=== PATIENT | female | born 1990 | race Asian ===

== ENCOUNTER 2018-04-09 20:18 | Emergency (ER) | END 2018-04-09 20:59 | disposition home or self-care (01) ==

== ENCOUNTER 2018-04-26 11:59 | Emergency (ER) | payer BC ==
[~2018-04-26] VITALS: Wt 50.3 kg
--- NOTE | 2018-04-26 14:32 | ERD ---
ER Documentation Chief Complaint Chief Complaint ABD PAIN X6 DAYS, NO N/V HPI 28-year-old female presents emergency department complains of intermittent episodes of moderate to severe epigastric abdominal pain that comes and goes for the past 6 days. Patient denies any nausea vomiting. Patient denies pain right now but she presents wondering what the pain was from. Patient denies fever, decreased appetite. States she is eating well. Denies any and medications for this ROS All systems reviewed and are negative except as per history of present illness. Medications Home Meds Active Scripts Omeprazole* (Omeprazole*) 20 Mg Capsule.dr, 20 MG PO DAILY, #14 Prov:AYANA ROUSSEAU PA-C 04/26/18 Famotidine* (Pepcid*) 20 Mg Tablet, 20 MG PO QHS for 4 Days, TAB Prov:AYANA ROUSSEAU PA-C 04/26/18 Allergies Allergies: Coded Allergies: No Known Allergy (Unverified , 04/26/18) PMhx/Soc Medical and Surgical Hx: pt denies Medical Hx, pt denies Surgical Hx Hx Alcohol Use: No Hx Substance Use: No Hx Tobacco Use: No Physical Exam Vitals Vital Signs Date Temp Pulse Resp B/P (MAP) Pulse Ox O2 O2 Flow FiO2 Time Delivery Rate 04/26/18 98.2 78 16 132/71 100 Room Air 15:01 (91) 04/26/18 98.4 86 17 141/76 100 12:01 (97) Physical Exam Const: No acute distress Head: Atraumatic Eyes: Normal Conjunctiva ENT: Normal External Ears, Nose and Mouth. Neck: Full range of motion. No meningismus. Resp: Clear to auscultation bilaterally Cardio: Regular rate and rhythm, no murmurs Abd: Soft, non tender, non distended. Normal bowel sounds Skin: No petechiae or rashes Back: No midline or flank tenderness Ext: No cyanosis, or edema Neur: Awake and alert Psych: Normal Mood and Affect Result Diagram: 04/26/18 1315 04/26/18 1315 Results 24 hrs Laboratory Tests Test 04/26/18 13:01 04/26/18 13:15 POC Beta HCG, Qualitative NEGATIVE White Blood Count 7.4 10^3/ul Red Blood Count 5.22 10^6/ul Hemoglobin 13.9 g/dl Hematocrit 43.7 % Mean Corpuscular Volume 83.7 fl Mean Corpuscular Hemoglobin 26.6 pg Mean Corpuscular Hemoglobin Concent 31.8 g/dl Red Cell Distribution Width 13.8 % Platelet Count 245 10^3/UL Mean Platelet Volume 10.4 fl Immature Granulocytes % 0.300 % Neutrophils % 61.2 % Lymphocytes % 29.0 % Monocytes % 7.2 % Eosinophils % 1.9 % Basophils % 0.4 % Nucleated Red Blood Cells % 0.0 /100WBC Immature Granulocytes # 0.020 10^3/ul Neutrophils # 4.5 10^3/ul Lymphocytes # 2.1 10^3/ul Monocytes # 0.5 10^3/ul Eosinophils # 0.1 10^3/ul Basophils # 0.0 10^3/ul Nucleated Red Blood Cells # 0.0 10^3/ul Urine Color YELLOW Urine Clarity CLEAR Urine pH 5.0 Urine Specific [place] 1.027 Urine Ketones TRACE mg/dL Urine Nitrite NEGATIVE mg/dL Urine Bilirubin NEGATIVE mg/dL Urine Urobilinogen NEGATIVE mg/dL Urine Leukocyte Esterase NEGATIVE [place]át[place]/ul Urine Hemoglobin NEGATIVE mg/dL Urine Glucose NEGATIVE mg/dL Urine Total Protein NEGATIVE mg/dl Sodium Level 142 mmol/L Potassium Level 4.0 mmol/L Chloride Level 104 mmol/L Carbon Dioxide Level 28 mmol/L Anion Gap 10 Blood Urea Nitrogen 8 mg/dl Creatinine 0.45 mg/dl Est Glomerular Filtrat Rate mL/min > 60 mL/min Glucose Level 77 mg/dl Calcium Level 9.0 mg/dl Total Bilirubin 0.4 mg/dl Direct Bilirubin 0.00 mg/dl Indirect Bilirubin 0.4 mg/dl Aspartate Amino Transf (AST/SGOT) 26 IU/L Alanine Aminotransferase (ALT/SGPT) 25 IU/L Alkaline Phosphatase 49 IU/L Total Protein 7.7 g/dl Albumin 5.3 g/dl Globulin 2.40 g/dl Albumin/Globulin Ratio 2.20 Lipase 207 U/L Procedures/MDM 28-year-old female presents to emerge department with complaint of history of intermittent episodes of epigastric abdominal pain in the past 6 days. Differentials include but not limited to esophagitis/gastritis, intestinal bloating, cholelithiasis, pancreatitis versus other. Blood work was done in the ED and was unremarkable. Urinalysis unremarkable for infection. Gallbladder ultrasound was unremarkable. Patient is well-appearing, afebrile and stable to discharged home with precautions return to emergency department. Prescription for omeprazole Pepcid was provided. Departure Diagnosis: Primary Impression: Abdominal pain Condition: Stable AYANA ROUSSEAU PA-C Apr 26, 2018 14:32
[2018-04-26] MEDS ORDERED: OMEP20CA16 PO (14:47)
[2018-04-26] MEDS ORDERED: FAMO-96 PO (14:47)
[2018-04-26 15:01] VITALS: BP 132/71; PULSE 78; RESP 16
== END 2018-04-26 15:00 | disposition home or self-care (01) ==
LOC: FTE 11:59
DX: R10.13 Epigastric pain (principal)
CPT/HCPCS: 36415; 76705; 80053; 81003; 81025; 83690; 85025